=== PATIENT | female | born 1980 | race Caucasian/White ===

== ENCOUNTER 2017-12-07 12:13 | Emergency (ER) | payer OTHER ==
[~2017-12-07] VITALS: Ht 167.6 cm; Wt 59.9 kg
[~2017-12-07 12:13] MED LIST: ALBU0.63 IH; ALPR1TAB2 PO; BECL8.7A6 IH; CARI350T PO; DICL50TA9 PO; DULO60CA45 PO; HYDR-551 PO; MAGN400T6 PO; NORT25CA PO; PHEN100C4 PO; POTA20TA83 PO; SPIR25TA4 PO
--- NOTE | 2017-12-07 12:35 | NUR ---
Pt.was seen by .
[2017-12-07 12:36] LABS: *BLOOD, URINE NEGATIVE (NEGATIVE); *CLARITY,URINE CLEAR (CLEAR); *COLOR,URINE YELLOW (YELLOW); *KETONES,URINE NEGATIVE (NEGATIVE); *PROTEIN,URINE TRACE (NEGATIVE); *URINE HCG, QUAL NEGATIVE (NEGATIVE); *UROBILINOGEN,URINE 0.2 E.U./dl (NORMAL); LEUKOCYTE ESTERASE ,URINE NEGATIVE (NEGATIVE); NITRITE, URINE NEGATIVE (NEGATIVE); UGLUCOSE NEGATIVE (NEGATIVE)
[2017-12-07 12:39] LABS: *BILIRUBIN,URIN 1+ (NEGATIVE)
[2017-12-07 12:40] LABS: BACTERIA,URINE FEW /HPF (NONE SEEN); RBC,URINE 0-3 /HPF (0-3); SQUAMOUS EPITHELIAL CELL,UR FEW /HPF (NONE SEEN); WBC,URINE 0-3 /HPF (0-3)
[2017-12-07] MEDS ORDERED: ONDANSETRON ODT 4 MG TAB.RAPDIS SL ONE (13:00)
[2017-12-07] MEDS ORDERED: ACETAMINOPHEN ES 500 MG TABLET ONE (13:00)
[2017-12-07] MEDS ORDERED: ACETAMINOPHEN ES 500 MG TABLET PO ONE (13:00)
[2017-12-07] MEDS ORDERED: ONDANSETRON ODT 4 MG TAB.RAPDIS ONE (13:07)
--- NOTE | 2017-12-07 13:15 | NUR ---
AT BEDSIDE,SPOKE WITH PT.ABOUT PLAN OF CARE,PT.REFUSIN FROM FURTHER TREATMENT.
[2017-12-07 13:43] VITALS: BP 122/66
== END 2017-12-07 13:51 | disposition left against medical advice (07) ==
LOC: ER 12:16
DX: R10.84 Generalized abdominal pain (principal); J44.9 Chronic obstructive pulmonary disease, unspecified; F17.210 Nicotine dependence, cigarettes, uncomplicated; Z88.8 Allergy status to other drugs, medicaments and biological substances; Z79.891 Long term (current) use of opiate analgesic; Z79.899 Other long term (current) drug therapy
CPT/HCPCS: 84703; A4663; A9150; Q0162

== ENCOUNTER 2018-05-25 09:56 | Emergency (ER) | END 2018-05-25 11:40 | disposition home or self-care (01) | DX: G89.4 Chronic pain syndrome (principal); R10.84 Generalized abdominal pain; J44.9 Chronic obstructive pulmonary disease, unspecified; F17.210 Nicotine dependence, cigarettes, uncomplicated; Z88.8 Allergy status to other drugs, medicaments and biological substances; Z79.891 Long term (current) use of opiate analgesic; Z79.899 Other long term (current) drug therapy | CPT/HCPCS: 36415; 74176; 76705; 80048; 80076; 81001; 83690; 84703; 85025; 96361; 96374; 96375; 96376; 99284; J1170 ×2; J2405 ==

== ENCOUNTER 2018-05-27 13:03 | Emergency (ER) | END 2018-05-27 14:05 | disposition left against medical advice (07) | DX: R10.11 Right upper quadrant pain (principal); R11.10 Vomiting, unspecified; R19.7 Diarrhea, unspecified; J44.9 Chronic obstructive pulmonary disease, unspecified; E87.6 Hypokalemia; F17.210 Nicotine dependence, cigarettes, uncomplicated; Z88.6 Allergy status to analgesic agent; Z88.8 Allergy status to other drugs, medicaments and biological substances; Z88.1 Allergy status to other antibiotic agents; Z98.890 Other specified postprocedural states ==

== ENCOUNTER 2018-07-28 14:51 | Inpatient (IN) | payer BC, OTHER ==
[~2018-07-28] VITALS: Ht 167.6 cm; Wt 60.8 kg
[~2018-07-28 14:51] MED LIST changes: -ALPR1TAB2 PO; -CARI350T PO; -DICL50TA9 PO; -HYDR-551 PO; -SPIR25TA4 PO; +SPIR25TA6 PO
[2018-07-28] MEDS ORDERED: ONDANSETRON 4 MG/2 ML VIAL ONE ×2 (15:26→17:50)
[2018-07-28] MEDS ORDERED: HYDROMORPHONE 1 MG/1 ML DISP.SYRIN ONE ×2 (15:26→17:50)
--- NOTE | 2018-07-28 15:27 | NUR ---
PATIENT WAS SEEN BY MD. SHE IS AWAKE AND ALERT. SHE IS CRYING DUE TO PAIN BUT STATES SHE IS BREATHING WELL AND DENIES SOB OR CHEST PAIN. IV PLACED BY Kimmy SCHMITZ LVN.
[2018-07-28] MEDS ORDERED: ONDANSETRON 4 MG/2 ML VIAL IV ONE (15:30)
[2018-07-28] MEDS ORDERED: VANCOMYCIN IV 1,000 MG in IV DEXTROSE 5% 250 ML IV ONE (15:30)
[2018-07-28] MEDS ORDERED: IV NORMAL SALINE 1000 ML BAG IV ONE ×2 (15:30→16:45)
[2018-07-28] MEDS ORDERED: HYDROMORPHONE 1 MG/1 ML DISP.SYRIN IV ONE ×2 (15:30→17:45)
[2018-07-28] MEDS ORDERED: VANCOMYCIN IV 200 ML ONE (15:41)
[2018-07-28 15:48] LABS: BASOPHILS % (AUTO) 0.1 % (0.0-2.0); EOSINOPHILS # (AUTO) 0.1 K/uL (0.0-0.7); HEMATOCRIT 33.9 % (31.2-41.9); HEMOGLOBIN 11.5 g/dL (10.9-14.3); LYMPHOCYTES # (AUTO) 1.4 K/uL (20.0-40.0); LYMPHOCYTES % (AUTO) 16.5 % (20.5-51.5); MEAN CORPUSCULAR HEMOGLOBIN 30.3 uug (24.7-32.8); MEAN CORPUSCULAR HGB CONC 34 g/dL (32.3-35.6); MEAN CORPUSCULAR VOLUME 89.5 fL (75.5-95.3); MONOCYTES # (AUTO) 0.6 K/uL (2.0-10.0); NEUTROPHILS # (AUTO) 6.4 K/uL (1.8-8.9); NEUTROPHILS % (AUTO) 75.4 % (38.5-71.5); PLATELET COUNT (AUTO) 344 K/uL (179-408); RED BLOOD CELL COUNT(AUTO) 3.79 MIL/uL (3.63-4.92); WHITE BLOOD COUNT (AUTO) 8.4 K/uL (3.8-11.8)
[2018-07-28 15:52] LABS: CREATININE 2.2 mg/dL (0.6-1.3); POTASSIUM 4.1 mmol/L (3.5-5.1)
[2018-07-28 15:57] LABS: BILIRUBIN,DIRECT 0.1 mg/dL (0.0-0.2); BILIRUBIN,TOTAL 0.2 mg/dL (0.2-1.0); TOTAL PROTEIN, SERUM 7.4 g/dL (6.4-8.2)
--- NOTE | 2018-07-28 16:22 | NUR ---
PATIENT STATES PAIN HAS DIMINSHED.
[2018-07-28] MEDS ORDERED: ACETAMINOPHEN 325 MG TABLET PO PRN (16:45)
[2018-07-28] MEDS ORDERED: ONDANSETRON 4 MG/2 ML VIAL IV PRN (16:45)
[2018-07-28] MEDS ORDERED: ONDANSETRON IV *ER 4 MG/2 ML VIAL IV ONE (17:45)
--- NOTE | 2018-07-28 17:53 | NUR ---
PATIENT STATES SHE HAS A LOT OF PAIN AGAIN. DR STEWART NOTIFIED. MEDICATION GIVEN ORDERED. I CALLED REILLY DAVIES ON M/S FLOOR AND NOTIFIED HER THAT PATIENT JUST RECEIVED DILAUDID IV.
--- NOTE | 2018-07-28 18:05 | NUR ---
PATIENT ADMIT TO MED SURG SHE HAD DILAUDID AND BREAK INTO HIVES WILL FOLLOW UP WITH JEY
[2018-07-28 18:15] VITALS: BP 114/78
[2018-07-28] MEDS ORDERED: MORPHINE SULFATE 2 MG/1 ML DISP.SYRIN IV PRN (18:30)
[2018-07-28] MEDS ORDERED: diphenhydrAMINE 50 MG CAPSULE PO ONE (18:30)
--- NOTE | 2018-07-28 18:30 | NUR ---
DR PARRA OKED TO GIVE MORPHINE ONCE TO SEE ALLERGIC RNX
--- NOTE | 2018-07-28 18:55 | NUR ---
PHARMACY CLINICAL NOTES ( VANCOMYCIN DOSING) S: 37 yo female with dx of cellulitis ; ordered Vancomycin O: BUN/SCR 41/2.2; WBC 8.4, TEMP 98.4 DOSING WT 134 LBS, T1/2 21.66 A/P: pt received vancomycin 1000 mg x 1 in ER @ 1600. (dose #1) will continue with Vancomycin 1000 mg q28h next dose due 07/29 ~ 1999, Estimated peak 39 and trough of 16.4. plan is to order trough prior to 4th dose. Will continue to monitor renal fxn and levels and adjust the dose if necessary.
--- NOTE | 2018-07-28 19:00 | NUR ---
RECEIVED PATIENT IN BED ALERT ORIENTED, NO COMPLAIN OF PAIN AT THIS TIME. PATIENT HAS R FACIAL EDEMA DUE TO CELLULITIS, WILL CONT TO MONITOR.
[2018-07-28] MEDS ORDERED: MORPHINE SULFATE 2 MG/1 ML DISP.SYRIN IV ONE (20:00)
[2018-07-28 20:05] VITALS: BP 118/59
[2018-07-28] MEDS: NORTRIPTYLINE HCL 25 MG CAPSULE PO SCH (21:14)
[2018-07-28] MEDS: POTASSIUM CHLORIDE 20 MEQ TAB.PRT.SR PO SCH (21:14)
[2018-07-29] MEDS: HYDROCODONE/APAP 5-325MG TABLET PO PRN ×4 (01:13→17:59)
[2018-07-29 04:00] VITALS: BP 136/55
[2018-07-29] MEDS: POTASSIUM CHLORIDE 20 MEQ TAB.PRT.SR PO SCH ×2 (06:00→10:00)
--- NOTE | 2018-07-29 06:51 | NUR ---
PATIENT SLEPT MOST OF THE NIGHT, NO SOB NO CHEST PAIN, CONT ON PAIN MANAGEMENT DUE TO CELLULITIS OF R FACE. CONTINENT OF BOWEL AND BLADDER. PATIENT HAS EPISODE OF AGITATION EARLIER, TRASHING, AND YELLING, REDIRECT PATIENT WITH SOME HELP, CONT TO MONITOR.
--- NOTE | 2018-07-29 07:00 | NUR ---
PATIENT FRUSTRATED, IRRITABLE, COMPLAINS OF PAIN, WILL FOLLOW MD ORDERS FOR PAIN MANAGEMENT
[2018-07-29] MEDS ORDERED: DULOXETINE 60 MG CAPSULE.DR PO SCH (09:00)
[2018-07-29] MEDS ORDERED: PANTOPRAZOLE SODIUM 40 MG VIAL IV SCH (09:00)
[2018-07-29] MEDS: MAGNESIUM OXIDE 400 MG TABLET PO SCH ×2 (09:33→17:59)
[2018-07-29] MEDS: SPIRONOLACTONE 25 MG TABLET PO SCH ×2 (09:33→17:59)
[2018-07-29] MEDS: PHENYTOIN SODIUM EXTENDED 100 MG CAPSULE.SA PO SCH ×3 (09:33→17:59)
[2018-07-29 10:05] LABS: CREATININE 1.4 mg/dL (0.6-1.3)
[2018-07-29 10:15] LABS: POTASSIUM 6.7 mmol/L (3.5-5.1)
--- NOTE | 2018-07-29 10:21 | NUR ---
LAB CALLED FOR K LEVEL 6.7 Bill PARRA WAS NOTIFIED AT HER OFFICE, SHE SAID I WILL FOLLOW UP.
[2018-07-29] MEDS ORDERED: LORAZEPAM 1 MG TABLET PO ONE (10:30)
--- NOTE | 2018-07-29 10:30 | NUR ---
PHARMACY CLINICAL NOTES ( VANCOMYCIN DOSING) S: To continue vanco for this 37 yo female with dx of cellulitis O: BUN/SCR 21/1.4; WBC 8.4 (07/29), TEMP 98.4 DOSING WT 60.7 kg A/P:Since srcr has decreased, will change dose to vanco 1gm IV q19h for predicted vanco trough level of 17 mcg/ml. 2nd dose due today at 1100. plan is to order trough prior to 4th dose (level not yet ordered). Will continue to monitor renal fxn and levels and adjust the dose if necessary.
[2018-07-29 10:41] VITALS: BP 132/60
[2018-07-29] MEDS ORDERED: SODIUM POLYSTYRENE SULFONATE 15 G/60 ML LIQUID UDC PO ONE (10:45)
[2018-07-29] MEDS ORDERED: INSULIN REGULAR, HUMAN 300 UNIT/3 ML VIAL SQ ONE (10:45)
[2018-07-29] MEDS ORDERED: SODIUM POLYSTYRENE SULF POWDER 15 GM UDC PO ONE (10:45)
[2018-07-29] MEDS ORDERED: CALCIUM GLUCONATE IV 1 GM in IV DEXTROSE 5% 50 ML IV ONE (10:45)
[2018-07-29] MEDS ORDERED: VANCOMYCIN IV 1 G in PREMIXED 0 EACH IV SCH ×3 (11:00→20:00)
[2018-07-29] MEDS ORDERED: METH10TA2 PO (12:19)
[2018-07-29] MEDS ORDERED: GABA-534 PO (12:19)
[2018-07-29] MEDS ORDERED: IOHEXOL 300MG/ML 100 ML INFUS..BTL ONE (12:33)
[2018-07-29] MEDS ORDERED: IV NORMAL SALINE 250 ML IV ONE (12:33)
[2018-07-29] MEDS ORDERED: SWABABLE VALVE TRANSFER SET EA MC ONE (12:33)
[2018-07-29] MEDS ORDERED: HYDROCORTISONE SOD SUCCINATE 250 MG/2 ML ML ONE (12:33)
[2018-07-29] MEDS ORDERED: IV NORMAL SALINE 0 ML IV ONE (12:33)
--- NOTE | 2018-07-29 13:43 | NUR ---
Orders cared out for K correction Bs check is 78 right now, orange juice is given now.
[2018-07-29] MEDS ORDERED: PIPERACILLIN/TAZOBACTAM/D5W 3.375 G in PREMIXED 1 EACH IV SCH (14:00)
[2018-07-29] MEDS ORDERED: DEXTROSE 50% 50 ML DISP.SYRIN IV ONE ×2 (14:15→16:15)
[2018-07-29 17:21] VITALS: BP 127/61
--- NOTE | 2018-07-29 19:30 | NUR ---
PATIENT AWAKE WITH AGITATION, YELLS AND SCREAMS, DO PACING ON THE HALLWAYS, CURSING. PATIENT THREATENING TO AMA. PATIENT WANTED ATIVAN FOR ANXIETY, REORIENT PATIENT WE WILL CALL MD FOR THE ORDERS. TRIES TO ATTEND ALL NEEDS, CONT TO MONITOR.
[2018-07-29 20:00] VITALS: BP 137/76
[2018-07-29] MEDS: NORTRIPTYLINE HCL 25 MG CAPSULE PO SCH (20:52)
[2018-07-29] MEDS: LORAZEPAM 1 MG TABLET PO PRN (20:52)
--- NOTE | 2018-07-29 20:52 | NUR ---
PATIENT AGITATED, YELLS AND SCREAMS, PACING IN HALLWAYS, NOTIFY DR. GIMENEZ, WITH ORDER OF ATIVAN. PATIENT ADMITS SHE ON THE DRUG WITHDRAWALS, AND SHE CANNOT HELP THE BEHAVIOR. WILL CONT TO MONITOR.
[2018-07-29] MEDS: PIPERACILLIN/TAZOBACTAM/D5W 3.375 G in PREMIXED 1 EACH IV SCH (20:54)
[2018-07-29] MEDS ORDERED: QUETIAPINE FUMARATE 25 MG TABLET PO PRN (23:45)
--- NOTE | 2018-07-29 23:47 | NUR ---
PATIENT STILL HAS EPISODES OF AGITATION, YELLING AND SCREAMING, PACING. CONT TO REDIRECT BEHAVIOR. PATIENT COMPLAIN OF INSOMNIA NOTIFY DR. GIMENEZ WITH ORDER. CONT TO MONITOR.
[2018-07-30] MEDS: HYDROCODONE/APAP 5-325MG TABLET PO PRN (01:41)
[2018-07-30 04:00] VITALS: BP 123/65
[2018-07-30] MEDS: PIPERACILLIN/TAZOBACTAM/D5W 3.375 G in PREMIXED 1 EACH IV SCH ×2 (04:43→12:00)
[2018-07-30] MEDS: LORAZEPAM 1 MG TABLET PO PRN (05:28)
[2018-07-30] MEDS: PANTOPRAZOLE SODIUM 40 MG TABLET.DR PO SCH ×2 (05:28→09:15)
--- NOTE | 2018-07-30 06:22 | NUR ---
PATIENT SLEPT MOST PART OF THE NIGHT, CONT ON PAIN MANAGEMENT FOR CELLULITIS OF R FACE. PATIENT STILL HAS EPISODES OF ANXIETY, MB AGITATION, YELLS AND SCREAM , AND TRASHING HER ARMS AND LEGS. GIVEN ATIVAN ORDERED. WILL CONT TO MONITOR.
--- NOTE | 2018-07-30 08:30 | NUR ---
Nursing - Patient very anxious, figity, restless, w/ crying spells noted, verbalized she needed to leacve, inpfromed she's leaving againts Medicial adviced, patient verbalized understanding. Charge Nurse Denies explained to patient abount her present condition, reviewed with patient, still wants to leave. Medication(neurontin) , patient 's own med. picked up from the Pharmacy to give back to patient, patient unable to wait, left w/o her home med.
[2018-07-30] MEDS: MAGNESIUM OXIDE 400 MG TABLET PO SCH (09:00)
[2018-07-30] MEDS: PHENYTOIN SODIUM EXTENDED 100 MG CAPSULE.SA PO SCH (09:00)
[2018-07-30] MEDS: SPIRONOLACTONE 25 MG TABLET PO SCH (09:00)
== END 2018-07-30 08:35 | disposition left against medical advice (07) | DRG 720 ==
LOC: ER 14:51 → MEDSURG3 17:40
PROVIDERS: ADMIT Registered Nurse; ATTEND Registered Nurse
PROC: 05HY33Z Insertion of Infusion Device into Upper Vein, Percutaneous Approach (ICD-10-PCS; principal; 2018-07-29)
DX: A41.9 Sepsis, unspecified organism (principal); N17.0 Acute kidney failure with tubular necrosis; E87.2 Acidosis; M32.9 Systemic lupus erythematosus, unspecified; E26.81 Bartter's syndrome; Z86.74 Personal history of sudden cardiac arrest; L03.211 Cellulitis of face; J01.00 Acute maxillary sinusitis, unspecified; M27.2 Inflammatory conditions of jaws; J32.0 Chronic maxillary sinusitis; M79.7 Fibromyalgia; G89.4 Chronic pain syndrome; J44.9 Chronic obstructive pulmonary disease, unspecified; H53.8 Other visual disturbances; F11.23 Opioid dependence with withdrawal; F17.210 Nicotine dependence, cigarettes, uncomplicated; K02.9 Dental caries, unspecified; K04.7 Periapical abscess without sinus; G43.909 Migraine, unspecified, not intractable, without status migrainosus; Z79.899 Other long term (current) drug therapy; Z88.8 Allergy status to other drugs, medicaments and biological substances
CPT/HCPCS: 36415; 70486; 70487; 71045; 83605; 83690; 83735; 84132; 85025; 87040; 93005; A4663; C9113; G0378; J0610; J1170; J1720; J1815; J2270; J2405; J2543; J3370; J3490; J7030; J7050; J7060; Q0163; Q9967

== ENCOUNTER 2019-02-20 19:08 | Emergency (ER) | payer BC, OTHER ==
[~2019-02-20] VITALS: Ht 167.6 cm; Wt 61.2 kg
[~2019-02-20 19:08] MED LIST changes: +GABA-534 PO; +METH10TA2 PO; -POTA20TA83 PO
--- NOTE | 2019-02-20 19:28 | NUR ---
PT IS A/OX4, PRESENTS TO THE ER C/O HEADACHE, NECK PAIN, N/V X 3 WEEKS. PT REPORTS SHE WAS SEEN AT [facility] ER FOR THE SAME COMPLAINT. VSS. PT DENIES C/P, SOB.
--- NOTE | 2019-02-20 19:37 | NUR ---
MIKAELA SMITH AT BEDSIDE FOR MSE.
[2019-02-20] MEDS ORDERED: IV NORMAL SALINE 1000 ML BAG IV ONE (19:45)
[2019-02-20 19:46] LABS: *URINE HCG, QUAL NEGATIVE (NEGATIVE)
[2019-02-20 19:57] LABS: *BILIRUBIN,URIN NEGATIVE (NEGATIVE); *BLOOD, URINE NEGATIVE (NEGATIVE); *CLARITY,URINE CLEAR (CLEAR); *COLOR,URINE LIGHT YELLOW (YELLOW); *KETONES,URINE NEGATIVE (NEGATIVE); *UROBILINOGEN,URINE 0.2 E.U./dl (NORMAL); LEUKOCYTE ESTERASE ,URINE NEGATIVE (NEGATIVE); NITRITE, URINE NEGATIVE (NEGATIVE); UGLUCOSE NEGATIVE (NEGATIVE)
[2019-02-20] MEDS ORDERED: DIAZEPAM 10 MG/2 ML DISP.SYRIN IV ONE (20:00)
[2019-02-20 20:10] LABS: BASOPHILS % (AUTO) 0.6 % (0.0-2.0); EOSINOPHILS # (AUTO) 0.2 K/uL (0.0-0.7); EOSINOPHILS % (AUTO) 2.8 % (0.0-7.0); HEMATOCRIT 34.6 % (31.2-41.9); HEMOGLOBIN 11.8 g/dL (10.9-14.3); LYMPHOCYTES # (AUTO) 3.2 K/uL (20.0-40.0); LYMPHOCYTES % (AUTO) 40.9 % (20.5-51.5); MEAN CORPUSCULAR HEMOGLOBIN 30.1 uug (24.7-32.8); MEAN CORPUSCULAR HGB CONC 34 g/dL (32.3-35.6); MEAN CORPUSCULAR VOLUME 88.5 fL (75.5-95.3); MONOCYTES # (AUTO) 0.8 K/uL (2.0-10.0); MONOCYTES % (AUTO) 10.2 % (0.0-11.0); NEUTROPHILS # (AUTO) 3.5 K/uL (1.8-8.9); NEUTROPHILS % (AUTO) 45.5 % (38.5-71.5); PLATELET COUNT (AUTO) 490 K/uL (179-408); RED BLOOD CELL COUNT(AUTO) 3.91 MIL/uL (3.63-4.92); WHITE BLOOD COUNT (AUTO) 7.7 K/uL (3.8-11.8)
[2019-02-20] MEDS ORDERED: ONDANSETRON 4 MG/2 ML VIAL IV ONE (20:15)
[2019-02-20] MEDS ORDERED: ONDANSETRON 4 MG/2 ML VIAL ONE (20:16)
[2019-02-20 20:17] LABS: CARBON DIOXIDE 32 mmol/L (21-32); CHLORIDE 105 mmol/L (98-107); CREATININE 1.1 mg/dL (0.6-1.3); GLUCOSE 96 mg/dL (74-106); UREA NITROGEN, BLOOD 22 mg/dL (7-18)
--- NOTE | 2019-02-20 20:30 | NUR ---
REPORT GIVEN TO ALEXUS Pearson LVN.
[2019-02-20 20:31] LABS: ALANINE AMINOTRANSFERASE 27 U/L (14-59); ALKALINE PHOSPHATASE 61 U/L (50-136); ASPARTATE AMINOTRANSFERASE 14 U/L (15-37); BILIRUBIN,DIRECT < 0.1 mg/dL (0.0-0.2); BILIRUBIN,TOTAL 0.1 mg/dL (0.2-1.0); LIPASE 323 U/L (73-393); TOTAL PROTEIN, SERUM 6.9 g/dL (6.4-8.2)
[2019-02-20] MEDS ORDERED: LORAZEPAM 2 MG/1 ML VIAL IV ONE (20:45)
[2019-02-20] MEDS ORDERED: POTASSIUM CHLORIDE 20 MEQ TAB.PRT.SR PO ONE (20:45)
[2019-02-20] MEDS ORDERED: LORAZEPAM 2 MG/1 ML VIAL ONE (20:51)
[2019-02-20] MEDS ORDERED: POTASSIUM CHLORIDE 20 MEQ TAB.PRT.SR ONE (20:59)
--- NOTE | 2019-02-20 21:03 | NUR ---
Patient discharged to home in stable conditon. Written and verbal after care instructions given. Patient and boyfriend verbalizes understanding of instructions. Patient was taken home by boyfriend.
[2019-02-20 21:05] VITALS: BP 115/77
--- NOTE | 2019-03-03 13:00 | NUR ---
LATE ENTRY: 02/20/19 NS 1000ML IV BOLUS GIVEN VIA 20GA SALINE LOCK TO LEFT FOREARM STARTED AT: 2000 COMPLETED AT: 2100
== END 2019-02-20 21:06 | disposition home or self-care (01) ==
LOC: ER 19:08
DX: M54.2 Cervicalgia (principal); M54.9 Dorsalgia, unspecified; E87.6 Hypokalemia; R11.10 Vomiting, unspecified; J44.9 Chronic obstructive pulmonary disease, unspecified; F17.210 Nicotine dependence, cigarettes, uncomplicated; Z88.8 Allergy status to other drugs, medicaments and biological substances; Z88.5 Allergy status to narcotic agent; Z79.899 Other long term (current) drug therapy
CPT/HCPCS: 36415; 80048; 80076; 81001; 83690; 84703; 85025; 87086; 96361; 96374; 96375; 99283; J2060; J2405; A4663; J7030

== ENCOUNTER 2019-07-01 11:55 | Emergency (ER) | payer OTHER ==
[~2019-07-01] VITALS: Ht 167.6 cm; Wt 64.4 kg
[~2019-07-01 11:55] MED LIST changes: -MAGN400T6 PO; +MAGN400T8 PO
[2019-07-01] MEDS ORDERED: IBUPROFEN 600 MG TABLET PO ONE (12:15)
[2019-07-01] MEDS ORDERED: IBUPROFEN 600 MG TABLET ONE (12:15)
--- NOTE | 2019-07-01 12:16 | NUR ---
Patient discharged to home in stable conditon. Written and verbal after care instructions given. Patient verbalizes understanding of instructions.PT WALKS IN STEADY GAIT.
== END 2019-07-01 12:25 | disposition home or self-care (01) ==
LOC: ER 11:55
DX: M54.5 Low back pain (principal); J44.9 Chronic obstructive pulmonary disease, unspecified; F17.210 Nicotine dependence, cigarettes, uncomplicated; Z88.8 Allergy status to other drugs, medicaments and biological substances; Z79.899 Other long term (current) drug therapy
CPT/HCPCS: A4663

== ENCOUNTER 2021-10-28 15:59 | Emergency (ER) | payer MEDICAID, OTHER ==
[~2021-10-28] VITALS: Ht 167.6 cm; Wt 64.4 kg
[~2021-10-28 15:59] MED LIST changes: +METH-817 PO; -METH10TA2 PO
--- NOTE | 2021-10-28 16:19 | NUR ---
PT IS IN ROOM #2A. DR OVALLE EVALUATED THE PT.
--- NOTE | 2021-10-28 17:24 | NUR ---
PT WAS EVALUATED BY DR OVALLE. PT WAS D/C'D TO HOME. D/C INSTRUCTIONS GIVEN TO THE PT BY DR OVALLE.
[2021-10-28 17:25] VITALS: BP 124/77
== END 2021-10-28 17:28 | disposition home or self-care (01) ==
LOC: ER 16:05
DX: S49.91XA Unspecified injury of right shoulder and upper arm, initial encounter (principal); S80.02XA Contusion of left knee, initial encounter; W19.XXXA Unspecified fall, initial encounter; Y92.89 Other specified places as the place of occurrence of the external cause; G47.419 Narcolepsy without cataplexy; F17.200 Nicotine dependence, unspecified, uncomplicated; Z88.6 Allergy status to analgesic agent; Z88.8 Allergy status to other drugs, medicaments and biological substances; M32.9 Systemic lupus erythematosus, unspecified; M79.7 Fibromyalgia; E26.81 Bartter's syndrome; J44.9 Chronic obstructive pulmonary disease, unspecified; Z86.74 Personal history of sudden cardiac arrest; G89.29 Other chronic pain; M54.9 Dorsalgia, unspecified
CPT/HCPCS: 73030; A4663